=== PATIENT | male | born 1960 | race Caucasian/White ===

== ENCOUNTER 2018-11-10 12:25 | Inpatient (IN) | payer OTHER ==
[~2018-11-10] VITALS: Ht 172.7 cm; Wt 68.0 kg
[2018-11-10] MEDS ORDERED: VASOTEC2.5 MG (12:39)
--- NOTE | 2018-11-10 12:39 | NUR ---
SE RECIBE PTE ALERTA Y ORIENTADO X3,REFIERE HABERSE DESMAYADO EN LA MANANA DE SHANA EN 2 OCASIONES,FAMILIAR REFIERE LUH ENFERMERA VECINA DE FEDE LE KEVIN S/V ARROJO 58/45,LUEGO 102/76LLEGO CANALIZADO CON ANGIO # 20 IZQUIERDA CON .9%,TIENE ABRACION EN LA RODILLA IZQUIERDA.
--- NOTE | 2018-11-10 13:52 | NUR ---
SE ORIENTA AL PACIENTE SOBRE MUESTRAS A SER COLECTADAS JASE ORDEN MEDICA. PACIENTE REFIERE ENTENDER. SE COLECTAN LAS MUESTRAS UTILIZANDO MEDIDAS ASEPTICAS Y SE ENVIAN AL LABORATORIO. PACIENTE CANALIZADO CON UN ANGIO #20 EN MANO LUIS CARLOS POR AMBULANCIA. PACIENTE TIENE CANALIZACION PATENTE, EVA DE EDEMA Y DE ENROJECIMIENTO. PACIETNE TIENE LUH SOLUCION 0.9% BAJANDO A 100ML/HR.
== END 2018-11-20 15:18 | disposition home or self-care (01) | DRG 310 ==
LOC: ER 12:25 → SEC-K 21:33 → MEDJ 22:32
PROVIDERS: ADMIT Internal Medicine
PROC: BW28ZZZ Computerized Tomography (CT Scan) of Head (ICD-10-PCS; principal; 2018-11-10)
PROC: B030ZZZ Magnetic Resonance Imaging (MRI) of Brain (ICD-10-PCS; 2018-11-10)
PROC: B345ZZZ Ultrasonography of Bilateral Common Carotid Arteries (ICD-10-PCS; 2018-11-10)
PROC: B346ZZZ Ultrasonography of Right Internal Carotid Artery (ICD-10-PCS; 2018-11-10)
PROC: B246ZZZ Ultrasonography of Right and Left Heart (ICD-10-PCS; 2018-11-10)
PROC: 4A12X4Z Monitoring of Cardiac Electrical Activity, External Approach (ICD-10-PCS; 2018-11-11)
DX: I49.5 Sick sinus syndrome (principal); R55 Syncope and collapse; I10 Essential (primary) hypertension; J32.0 Chronic maxillary sinusitis
CPT/HCPCS: 70551